=== PATIENT | male | born 1985 | race Caucasian/White ===

== ENCOUNTER 2021-11-02 09:04 | Day surgery (SDC) | payer OTHER ==
[~2021-11-02] VITALS: Ht 182.9 cm; Wt 76.8 kg
[~2021-11-02 09:04] MED LIST: ARNUITY ELLIPT50 MCG; GUMMI BEAR MUL1 EACH PO; L-LYSINE500 M1 PO; MELOXICAM7.5 MG PO; OMEPRAZOLE20 MG PO; SUDAFED 12-HOU120 MG PO; TURMERIC 450-51 EACH PO; VITAMIN D31250 MC1 PO
--- NOTE | 2021-11-02 10:53 | NUR ---
11/02/21 1053 Jennifer Spivey 1047 PATIENT ARRIVES TO PACU WITH EYES CLOSED. OPENS EYES TO VERBAL STIMULI, BUT VERY SLEEPY. RESP EVEN AND UNLABORED, NC AT 5 LITERS. 1050 PATIENT SLEEPING, AWAKENS WITH VERBAL STIMULI. SLOW TO FOLLOW COMMANDS, ENCOUARGED TO DEEP BREATHE AND COUGH. NC TURNED DOWN TO 2 LITERS.
--- NOTE | 2021-11-02 11:40 | NUR ---
PT ARRIVES BACK TO DAY SURGERY DRINKING APPLE JUICE. PT DENIES NAUSEA. PULSE OX LEFT IN PLACE. BED RAILS UP, CALL LIGHT PROVIDED, PT'S MOTHER AT THE BEDSIDE. UPDATED ON PLAN OF CARE AND WHEN HE IS ABLE TO LEAVE LONG HE MEETS CRITERIA.
--- NOTE | 2021-11-02 12:11 | NUR ---
PT PROVIDED APPLE JUICE AND JELL-O PER HIS REQUEST. PT'S MOTHER PROVIDED ICE WATER. OXYGEN SAT HIGH 90'S TO 100% ON RA. PT HAS NO FURTHER REQUESTS.
--- NOTE | 2021-11-02 12:32 | NUR ---
PT SITTING UP IN BED WATCHING TV. PT REQUESTING [employer]. THIS PROVIDED. PT DENIES ANY PAIN OR NAUSEA.
--- NOTE | 2021-11-02 13:19 | NUR ---
PT WAS DRESSING HIMSELF, VOMITS INTO THE SINK. PT STATES HE IS FEELING OKAY NOW. DR. LEDBETTER CONTACTED AND ITZEL PECK ORDERED.
--- NOTE | 2021-11-03 06:13 | OR ---
[facility] [address] [place], [place] [address] Signed DATE OF OPERATION: 11/02/2021 SURGEON: Jeb Ledbetter MD PREOPERATIVE DIAGNOSES: 1. Lactose intolerance with chronic diarrhea. 2. Gastroesophageal reflux disease. 3. Tiny hiatal hernia. 4. Mid esophageal dysphagia last three years. 5. Vomiting. POSTOPERATIVE DIAGNOSES: 1. Mild gastroduodenitis. 2. Small hiatal hernia. 3. Fundal gastric diverticulum x1. PROCEDURES: EGD with CLOtest and biopsies of the duodenal, pyloric bulb, antrum and GE junction. ESTIMATED BLOOD LOSS: None. INDICATIONS: Altaf is a 36-year-old gentleman, asked to see me for upper endoscopy. He is known to have a lactose intolerance associated with chronic diarrhea. He described acid reflux for many years. He chewed stuff for many years, but he quit in 2017. He is worried because a co-worker had Soto's esophagus that became cancer. He has had to have surgery. Altaf told me he has mid esophageal dysphagia that has gotten worse over the last three years. He said it was starting to concern his . He had been to his primary care provider. A barium swallow was performed in July 2021. He had a tiny hiatal hernia. He had acid reflux with positional changes. He thinks it is worse when he is lying supine. He has elevated the head of his bed. He was drinking up to eight sodas a day and cut that down to about one soda a week. He said that really helped his acid reflux symptoms. He was initially going to take omeprazole twice a day, but he is taking it once a day. He said that also helps and feel much better. He thinks maybe in his early 20s, he had an upper endoscopy in which they described some scar tissue in the esophagus. In the office, I gave him a pamphlet on upper endoscopy. We reviewed the nature of the test. He understands there is risk including, but not limited to gas bloating, crampy abdominal pain, bleeding, perforation requiring surgery, and missed diagnosis. He also understands the need for IV conscious sedation. He had expressed Electronically Signed By: JEB LEDBETTER MD 11/03/21 0613 PATIENT NAME: ALTAF DEE OPERATIVE REPORT DATE OF : 81 REPORT #: [id number] PHYSICIAN: JEB LEDBETTER MD PCP: STEPH PEREZ REPORT IS CONFIDENTIAL AND NOT TO BE RELEASED WITHOUT AUTHORIZATION [facility] [address] [place] [id number] Signed understanding and wished to proceed. PROCEDURE NOTE: Altaf was taken into our endoscopy suite and placed in the supine semi-recumbent position. The posterior oropharynx was anesthetized with Hurricaine spray. A bite block was utilized for the case. He was given a total of 12 mg of Versed and 150 mcg of fentanyl to cover the case. Even then, he was moving and fighting and pulling at the scope and so forth. Consequently, he really should have monitored anesthesia care with propofol in the future. In addition, we were unable to take any measurements of hiatal hernia because of his moving around. We did introduce the scope and passed under direct visualization out into the duodenum. The duodenum was unremarkable. We took a biopsy of the duodenum because the history of diarrhea. His pyloric channel and stomach showed very mild intermittent erythematous changes. We went ahead and took a biopsy of the pyloric bulb in the antrum for pathologic review. We took an additional biopsy of the antrum for CLOtest. Upon retroflexion of the scope, I could see a small hiatal hernia. At the top of the fundus, he has a single diverticulum. The scope was withdrawn up through the area of the GE junction, which was compliant without stricture. He does have some irritation around the Z-line, but no Soto's esophagus. We took a single biopsy in this area for pathologic review. Really, no obvious findings in the distal, middle or upper esophagus. After this, the gas was suctioned out and the gastroscope removed. Altaf tolerated the procedure quite well. RECOMMENDATIONS: I will see Altaf back in my office in 7 to 14 days to review his results. Jeb Ledbetter MD ALB/MODL /[id number] cc: YARA Mills MD Copies: STEPH PEREZ Electronically Signed By: JEB LEDBETTER MD 11/03/21 0613 PATIENT NAME: ALTAF DEE OPERATIVE REPORT DATE OF : 81 REPORT #: [id number] PHYSICIAN: JEB LEDBETTER MD PCP: STEPH PEREZ REPORT IS CONFIDENTIAL AND NOT TO BE RELEASED WITHOUT AUTHORIZATION [address] [address] Signed JEB LEDBETTER MD ~ Electronically Signed By: JEB LEDBETTER MD 11/03/21 0613 PATIENT NAME: ALTAF DEE Ildefonso OPERATIVE REPORT DATE OF : 81 REPORT #: [id number] PHYSICIAN: JEB LEDBETTER MD PCP: STEPH PEREZ REPORT IS CONFIDENTIAL AND NOT TO BE RELEASED WITHOUT AUTHORIZATION
--- NOTE | 2021-11-03 10:53 | PATH ---
[facility] [address] [place], [place] [address] Signed SPECIMEN(S): A DUODENAL BIOPSY SPECIMEN(S): B ANTRUM/PYLORUS BIOPSY SPECIMEN(S): C ANTRUM/PYLORUS BIOPSY SPECIMEN(S): D GE JUNCTION BIOPSY SPECIMEN SOURCE: A. DUODENAL BIOPSY B. ANTRUM/PYLORUS BIOPSY C. ANTRUM/PYLORUS BIOPSY D. GE JUNCTION BIOPSY CLINICAL HISTORY: EGD. Preop: Lactose intolerance, chronic diarrhea, GERD, mid esophageal dysphagia (3 years), vomiting, history of hiatal hernia. Postop: Mild gastroduodenitis, small hiatal hernia, gastric diverticulum in fundus. FINAL PATHOLOGIC DIAGNOSIS: A. Duodenum, biopsy: - Duodenal mucosa with no histopathologic abnormality. - Negative for increased intraepithelial lymphocytes or villous blunting. - Negative for dysplasia or malignancy. B. Stomach, antrum/pylorus, biopsy: - Duodenal mucosa with Huy's gland hyperplasia. - No gastric mucosa present for evaluation. - Negative for dysplasia or malignancy. C. Stomach, antrum/pylorus, biopsy: - Antral mucosa with no histopathologic abnormality. - Negative for Helicobacter organisms on HE stain. - Negative for dysplasia or malignancy. D. Gastroesophageal junction, biopsy: - Cardia-oxyntic type gastric mucosa with minimal chronic inflammation. - Negative for Helicobacter organisms on HE stain. - Negative for intestinal metaplasia, dysplasia, or malignancy. NAL:mfr:C2NR MICROSCOPIC EXAMINATION: Histologic sections of all submitted blocks are examined by light microscopy. These findings, together with the gross examination, support the pathologic diagnosis. PATIENT NAME: ALTAF DEE PATHOLOGY DATE OF : 81 REPORT #: [id number] PHYSICIAN: LAKHWINDER WEST PCP: STEPH PEREZ REPORT IS CONFIDENTIAL AND NOT TO BE RELEASED WITHOUT AUTHORIZATION [facility] [address] [place], [place] [address] Signed GROSS DESCRIPTION: Four specimens are received in four containers, labeled "JK." A. The specimen, labeled "JK, duodenum biopsy," is received in formalin and consists of one jo soft tissue fragment that measures 0.2 cm in greatest dimension. The specimen is entirely submitted in cassette (A1). B. The specimen, labeled "JK, antrum biopsy," is received in formalin and consists of one jo soft tissue fragment that measures 0.2 cm in greatest dimension. The specimen is entirely submitted in cassette (B1). C. The specimen, labeled "JK, antrum biopsy," is received in formalin and consists of one jo soft tissue fragment that measures 0.2 cm in greatest dimension. The specimen is entirely submitted in cassette (C1). D. The specimen, labeled "JK, GE junction biopsy," is received in formalin and consists of one jo soft tissue fragment that measures 0.2 cm in greatest dimension. The specimen is entirely submitted in cassette (D1). JS (under the direct supervision of a pathologist) The Gross Description was prepared using a voice recognition system. The report was reviewed for accuracy; however, sound-alike word errors, addition and/or deletions may occur. If there is any question about this report, please contact Client Services. PERFORMING LABORATORY: The technical component was performed by [facility], [address] [place] [id number] (Core Blower Operator: Praveena Weaver MD; CLIA# [id number]). Professional interpretation was performed by [facility], [facility], [address] [address] (CLIA# [id number]). Diagnostician: Anaya Gomez MD Pathologist Electronically Signed 11/03/2021 Copies: ~ PATIENT NAME: ALTAF DEE PATHOLOGY DATE OF : 81 REPORT #: [id number] PHYSICIAN: LAKHWINDER PATHOLOGY PCP: STEPH PEREZ REPORT IS CONFIDENTIAL AND NOT TO BE RELEASED WITHOUT AUTHORIZATION
== END 2021-11-02 13:40 | disposition home or self-care (01) ==
LOC: DS 09:04 → OPS 09:04 → DS 10:30 → OPS 13:40
PROVIDERS: ATTEND Colon & Rectal Surgery
PROC: 0DB68ZZ Excision of Stomach, Via Natural or Artificial Opening Endoscopic (ICD-10-PCS; principal; 2021-11-02 10:30)
DX: K21.9 Gastro-esophageal reflux disease without esophagitis (principal); K52.9 Noninfective gastroenteritis and colitis, unspecified; E73.9 Lactose intolerance, unspecified; K29.90 Gastroduodenitis, unspecified, without bleeding; K44.9 Diaphragmatic hernia without obstruction or gangrene; K31.4 Gastric diverticulum; R13.19 Other dysphagia; R11.10 Vomiting, unspecified; Z88.0 Allergy status to penicillin
CPT/HCPCS: 87077; 99153; A9270; G0500; J2250; J3010; J7121

== ENCOUNTER 2024-09-15 08:06 | Emergency (ER) | payer OTHER ==
[~2024-09-15] VITALS: Ht 182.9 cm; Wt 74.4 kg
[2024-09-15] MEDS ORDERED: CYCLOBENZAPRINE10 MG PO (09:00)
[2024-09-15 09:04] VITALS: BP 130/94
== END 2024-09-15 09:05 | disposition home or self-care (01) ==
LOC: ED 08:06
DX: S13.4XXA Sprain of ligaments of cervical spine, initial encounter (principal); Z88.0 Allergy status to penicillin; Z79.899 Other long term (current) drug therapy; V47.5XXA Car driver injured in collision with fixed or stationary object in traffic accident, initial encounter
CPT/HCPCS: 99283